=== PATIENT | male | born 1990 | race Caucasian/White ===

== ENCOUNTER 2017-01-04 18:14 | Emergency (ER) | payer OTHER ==
[~2017-01-04] VITALS: Ht 170.2 cm; Wt 85.0 kg
[2017-01-04 18:16] VITALS: BP 122/87
[2017-01-04] MEDS ORDERED: FOLI1 PO (18:19)
[2017-01-04] MEDS ORDERED: VITAD400 PO (18:19)
== END 2017-01-04 19:29 | disposition home or self-care (01) ==
LOC: EMS 18:17
DX: R44.0 Auditory hallucinations (principal); E78.00 Pure hypercholesterolemia, unspecified
CPT/HCPCS: 99284